=== PATIENT | female | born 1945 | race Caucasian/White ===

== ENCOUNTER → 2018-03-06 09:58 | Outpatient (CLI) | payer MEDICARE, SELFPAY ==
[2018-03-06 10:58] LABS: Basophils # 0.1 K/mm3 (0-0.2); Eosinophils # 0.2 K/mm3 (0.0-0.4); Eosinophils % 3.7 % (0.1-12.0); Hematocrit 44.8 % (37.0-47.0); Hemoglobin 14.5 g/dL (12.2-16.2); Lymphocytes # 1.7 K/mm3 (0.7-4.5); Lymphocytes % 33.8 K/mm3 (10-50); Mean Corpuscular HGB Conc 32.4 g/dL (31.8-35.4); Mean Corpuscular Hemoglobin 30.6 pg (27.0-31.2); Mean Corpuscular Volume 94.6 fl (81-99); Mean Platelet Volume 9.4 fl (7.4-10.4); Monocytes # 0.3 K/mm3 (0.1-1.0); Monocytes % 6.7 % (1.7-9.3); Neutrophils # 2.7 K/mm3 (1.8-7.8); Neutrophils % 54.7 % (37.0-80.0); Platelet Count 297 K/mm3 (142-424); Red Blood Count 4.74 M/mm3 (4.20-5.40); Red Cell Distribution Width 12.5 % (11.5-17.5); White Blood Count 4.9 K/mm3 (4.8-10.8)
[2018-03-06 11:17] LABS: Alanine Aminotransferase 26 U/L (12-78); Albumin Level 4.3 gm/dL (3.4-5.0); Alkaline Phosphatase 64 U/L (46-116); Anion Gap 9.9 mEq/L (5-15); Aspartate Amino Transferase 22 U/L (15-37); Bilirubin,Total 0.4 mg/dL (0.2-1.0); Blood Urea Nitrogen 16 mg/dL (7-18); Calcium 9.3 mg/dL (8.5-10.1); Carbon Dioxide 32 mmol/L (21.0-32.0); Chloride 103 mmol/L (98-107); Creatinine,Serum 0.69 mg/dL (0.55-1.02); Estimated Glomerular Filt Rate 84 ml/min (>60); GFR (African American) 102 ML/MIN (>60); Globulin 4.2 gm/dl (1.3-3.2); Glucose 85 mg/dL (74-106); Potassium 3.9 mmoL/L (3.5-5.1); Sodium 141 mmol/L (136-145); Thyroid Stimulating Hormone 2.88 uIU/ml (0.358-3.740); Total Protein,Serum 8.5 gm/dL (6.4-8.2)
[2018-03-06 12:31] LABS: Erythrocyte Sedimentation Rate 11 mm/hr (0-30)
[2018-03-07 09:18] LABS: Vitamin B12 732 pg/mL (232-1245)
[2018-03-07 14:45] LABS: Hemoglobin A1C 5.3 % (0.0-7.0)
[2018-03-07 15:58] LABS: Folate >20.0 ng/mL (>3.0); Rapid Plasma Reagin Ab Titer Non Reactive (NonRea<1:1)
[2018-03-08 15:17] LABS: Albumin 4.4 g/dL (2.9-4.4); Alpha-1-Globulin 0.3 g/dL (0.0-0.4); Alpha-2-Globulin 0.8 g/dL (0.4-1.0); Gamma Globulin 1.4 g/dL (0.4-1.8); Protein, Total 8.1 g/dL (6.0-8.5)
[2018-03-08 17:42] LABS: Antinuclear Antibodies, IFA Negative (.)
== END ==
PROVIDERS: Visit Provider Internal Medicine
DX: G99.0 Autonomic neuropathy in diseases classified elsewhere (principal); Z79.899 Other long term (current) drug therapy
CPT/HCPCS: 36415; 80053; 82607; 82746; 83036; 84165; 84443; 85025; 85651; 86038; 86592

== ENCOUNTER → 2018-03-07 10:51 | Outpatient (CLI) | payer MEDICARE, SELFPAY ==
[2018-03-07 10:56] LABS: Microscopic, Urine URINE MICROSCOPIC (MICROSCOPIC)
[2018-03-07 11:34] LABS: Appearance,Urine CLEAR (Clear); Bilirubin,Urine Negative (Negative); Blood, Urine Negative (Negative); Color,Urine YELLOW (Yellow); Glucose,Urine (UA) Negative (Negative); Ketones,Urine Negative (Negative); Leukocyte Esterase,Urine TRACE (Negative); Nitrate,Urine Negative (Negative); PH,Urine 6.5 (5.0-8.5); Protein,Urine Negative (Negative); Urobilinogen,Urine 0.2 EU/dl (0.2)
[2018-03-07 12:08] LABS: Bacteria,Urine Trace /lpf
== END ==
PROVIDERS: Visit Provider Internal Medicine
DX: N39.0 Urinary tract infection, site not specified (principal); G99.0 Autonomic neuropathy in diseases classified elsewhere
CPT/HCPCS: 81001; 87086

== ENCOUNTER → 2018-04-17 14:14 | Outpatient (POV) | payer MEDICARE, SELFPAY | PROVIDERS: PCP Internal Medicine | DX: Z00.00 Encounter for general adult medical examination without abnormal findings (principal) ==

== ENCOUNTER → 2019-04-02 15:05 | Outpatient (CLI) | payer MEDICARE, SELFPAY ==
--- NOTE | 2019-04-02 15:18 | XR_ITS ---
XR chest 2V HISTORY: ITS.REASON: SOA,PLEURISY ON LT ORDERING PHYSICIAN: Lul Multani PATIENT AGE: 73 years COMPARISON: 12/26/2013 FINDINGS: The cardiomediastinal silhouette and pulmonary vascularity are within normal limits. Calcified granulomas are present in both upper lobes and there are calcified nodes in the giana.. No lobar consolidation or collapse. No significant change. No acute bony abnormalities. IMPRESSION: No change with no acute finding
[2019-04-02 15:52] LABS: D-Dimer 405 ng/mL (0-400)
[2019-04-02 16:08] LABS: Erythrocyte Sedimentation Rate 9 mm/hr (0-30)
== END ==
PROVIDERS: Visit Provider Internal Medicine
DX: R09.1 Pleurisy (principal); R06.02 Shortness of breath
CPT/HCPCS: 36415; 71046; 85378; 85651

== ENCOUNTER → 2019-11-24 16:48 | Outpatient (CLI) | payer MEDICARE, SELFPAY ==
[2019-11-24 17:39] LABS: Alanine Aminotransferase 26 U/L (12-78); Alkaline Phosphatase 55 U/L (46-116); Amylase 78 U/L (25-115); Aspartate Amino Transferase 30 U/L (15-37); Basophils % 0.7 % (0.1-2.0); Bilirubin,Total 0.2 mg/dL (0.2-1.0); Blood Urea Nitrogen 12 mg/dL (7-18); Calcium 8.8 mg/dL (8.5-10.1); Carbon Dioxide 28 mmol/L (21.0-32.0); Chloride 104 mmol/L (98-107); Eosinophils # 0.4 K/mm3 (0.0-0.4); Estimated Glomerular Filt Rate 98 ml/min (>60); GFR (African American) 119 ML/MIN (>60); Glucose 92 mg/dL (74-106); Hemoglobin 12.2 g/dL (12.2-16.2); Lymphocytes # 1.5 K/mm3 (0.7-4.5); Lymphocytes % 24.6 % (10-50); Mean Corpuscular HGB Conc 30.5 g/dL (31.8-35.4); Mean Corpuscular Hemoglobin 28.4 pg (27.0-31.2); Mean Platelet Volume 8.3 fl (7.4-10.4); Monocytes # 0.4 K/mm3 (0.1-1.0); Monocytes % 6.8 % (1.7-9.3); Neutrophils # 3.8 K/mm3 (1.8-7.8); Neutrophils % 61.9 % (37.0-80.0); Platelet Count 312 K/mm3 (142-424); Red Cell Distribution Width 13.1 % (11.5-17.5); Sodium 142 mmol/L (136-145); Total Protein,Serum 6.7 gm/dL (6.4-8.2); White Blood Count 6.1 K/mm3 (4.8-10.8)
[2019-11-24 17:46] LABS: Albumin Level 3.4 gm/dL (3.4-5.0); Globulin 3.3 gm/dl (1.3-3.2)
== END ==
PROVIDERS: Visit Provider Internal Medicine
DX: R10.13 Epigastric pain (principal); R11.0 Nausea
CPT/HCPCS: 80053; 82150; 85025

== ENCOUNTER → 2021-09-19 18:10 | Outpatient (CLI) | payer MEDICARE, SELFPAY | PROVIDERS: Visit Provider Internal Medicine | DX: N39.0 Urinary tract infection, site not specified (principal) | CPT/HCPCS: 87086 ==

== ENCOUNTER → 2021-09-30 14:57 | Outpatient (CLI) | payer MEDICARE, SELFPAY ==
[2021-09-30 15:05] LABS: Microscopic, Urine URINE MICROSCOPIC (MICROSCOPIC)
[2021-09-30 17:40] LABS: Appearance,Urine CLEAR (Clear); Bilirubin,Urine Negative (Negative); Blood, Urine Negative (Negative); Color,Urine YELLOW (Yellow); Glucose,Urine (UA) Negative (Negative); Ketones,Urine Negative (Negative); Leukocyte Esterase,Urine 2+ (Negative); Nitrate,Urine Negative (Negative); Protein,Urine Negative (Negative); Specific Gravity, Urine 1.015 (1.005-1.030); Urobilinogen,Urine 0.2 EU/dl (0.2)
[2021-09-30 17:59] LABS: Bacteria,Urine 1+ /lpf; RBC,Urine Occasional #/hpf (0-3)
== END ==
PROVIDERS: Visit Provider Internal Medicine
DX: N39.0 Urinary tract infection, site not specified (principal); G60.9 Hereditary and idiopathic neuropathy, unspecified
CPT/HCPCS: 81001; 87086

== ENCOUNTER → 2021-10-25 09:08 | Outpatient (CLI) | payer MEDICARE, SELFPAY ==
[2021-10-25 10:02] LABS: Basophils # 0.1 K/mm3 (0-0.2); Basophils % 1.5 % (0.1-2.0); Eosinophils # 0.5 K/mm3 (0.0-0.4); Eosinophils % 8.1 % (0.1-12.0); Hematocrit 43.2 % (37.0-47.0); Hemoglobin 14.1 g/dL (12.2-16.2); Lymphocytes # 2.1 K/mm3 (0.7-4.5); Mean Corpuscular HGB Conc 32.7 g/dL (31.8-35.4); Mean Corpuscular Hemoglobin 30.6 pg (27.0-31.2); Mean Corpuscular Volume 93.6 fl (81-99); Monocytes # 0.4 K/mm3 (0.1-1.0); Monocytes % 7.5 % (1.7-9.3); Neutrophils # 2.5 K/mm3 (1.8-7.8); Platelet Count 319 K/mm3 (142-424); Red Blood Count 4.62 M/mm3 (4.20-5.40); Red Cell Distribution Width 12.7 % (11.5-17.5); White Blood Count 5.5 K/mm3 (4.8-10.8)
[2021-10-25 11:06] LABS: Hemoglobin A1C 5.6 % (4.0-6.0)
[2021-10-25 11:07] LABS: Alanine Aminotransferase 26 U/L (12-78); Albumin Level 4.7 g/dl (3.5-5.0); Albumin/Globulin Ratio 1.6 (1.1-1.8); Alkaline Phosphatase 56 U/L (38-126); Anion Gap 9.2 mEq/L (5-15); Aspartate Amino Transferase 44 U/L (14-36); Bilirubin,Total 0.4 mg/dl (0.2-1.3); Blood Urea Nitrogen 12 mg/dl (7-17); Calcium 10.3 mg/dl (8.4-10.2); Carbon Dioxide 32 mmol/L (22.0-30.0); Chloride 99 mmol/L (98-107); Chol/HDL Ratio 2.8 (1-3.5); Cholesterol 250 mg/dl (140-200); Estimated Glomerular Filt Rate 82 ml/min (>60); GFR (African American) 99 ML/MIN (>60); Glucose 89 mg/dl (74-100); HDL Cholesterol 88 mg/dl (40-60); Potassium 4.2 mmoL/L (3.5-5.1); Sodium 136 mmol/L (136-145); Total Protein,Serum 7.7 g/dl (6.3-8.2); Triglycerides 130 mg/dl (30-150); VLDL Cholesterol 26 mg/dL (0-40)
[2021-10-25 11:35] LABS: Thyroid Stimulating Hormone 3.05 uIU/mL (0.465-4.68)
[2021-10-25 11:56] LABS: Vitamin B12 898 pg/mL (239-931)
[2021-10-26 15:10] LABS: Albumin 4.1 g/dL (2.9-4.4); Alpha-1-Globulin 0.3 g/dL (0.0-0.4); Alpha-2-Globulin 0.8 g/dL (0.4-1.0); Gamma Globulin 1.4 g/dL (0.4-1.8); Protein, Total 7.7 g/dL (6.0-8.5)
== END ==
PROVIDERS: Visit Provider Internal Medicine
DX: I49.3 Ventricular premature depolarization (principal); J45.909 Unspecified asthma, uncomplicated; H54.50 Low vision, one eye, unspecified eye; R25.2 Cramp and spasm; E78.5 Hyperlipidemia, unspecified; G60.9 Hereditary and idiopathic neuropathy, unspecified; M15.0 Primary generalized (osteo)arthritis; Z79.899 Other long term (current) drug therapy
CPT/HCPCS: 36415; 80053; 80061; 82607; 83036; 83655; 84155; 84165; 84443; 85025

== ENCOUNTER → 2022-06-30 16:53 | Outpatient (CLI) | payer MEDICARE, SELFPAY | PROVIDERS: PCP Internal Medicine; Visit Provider Internal Medicine | DX: N39.0 Urinary tract infection, site not specified (principal) | CPT/HCPCS: 87086 ==

== ENCOUNTER → 2022-07-10 11:14 | Outpatient (CLI) | payer MEDICARE, SELFPAY ==
[2022-07-10 11:49] LABS: Basophils # 0.1 K/mm3 (0-0.2); Basophils % 1.2 % (0.1-2.0); Eosinophils # 0.3 K/mm3 (0.0-0.4); Eosinophils % 3.6 % (0.1-12.0); Hematocrit 42.4 % (37.0-47.0); Hemoglobin 13.5 g/dL (12.2-16.2); Lymphocytes # 1.7 K/mm3 (0.7-4.5); Lymphocytes % 23.3 % (10-50); Mean Corpuscular HGB Conc 31.7 g/dL (31.8-35.4); Mean Corpuscular Hemoglobin 30.5 pg (27.0-31.2); Mean Corpuscular Volume 96.2 fl (81-99); Mean Platelet Volume 8.4 fl (7.4-10.4); Monocytes # 0.4 K/mm3 (0.1-1.0); Monocytes % 5.3 % (1.7-9.3); Neutrophils # 4.7 K/mm3 (1.8-7.8); Neutrophils % 66.7 % (37.0-80.0); Platelet Count 301 K/mm3 (142-424); Red Blood Count 4.41 M/mm3 (4.20-5.40); Red Cell Distribution Width 13.1 % (11.5-17.5); White Blood Count 7.1 K/mm3 (4.8-10.8)
[2022-07-10 12:55] LABS: Alanine Aminotransferase 25 U/L (12-78); Albumin Level 4.4 g/dl (3.5-5.0); Albumin/Globulin Ratio 1.5 (1.1-1.8); Alkaline Phosphatase 66 U/L (38-126); Anion Gap 9.3 mEq/L (5-15); Aspartate Amino Transferase 36 U/L (14-36); Bilirubin,Total 0.4 mg/dl (0.2-1.3); Blood Urea Nitrogen 13 mg/dl (7-17); Calcium 9.6 mg/dl (8.4-10.2); Carbon Dioxide 31 mmol/L (22.0-30.0); Chloride 101 mmol/L (98-107); Chol/HDL Ratio 2.9 (1-3.5); Cholesterol 233 mg/dl (140-200); Estimated Glomerular Filt Rate 98 ml/min (>60); GFR (African American) 118 ML/MIN (>60); Glucose 91 mg/dl (74-100); HDL Cholesterol 79 mg/dl (40-60); Potassium 4.3 mmoL/L (3.5-5.1); Sodium 137 mmol/L (136-145); Total Protein,Serum 7.4 g/dl (6.3-8.2); Triglycerides 103 mg/dl (30-150); VLDL Cholesterol 21 mg/dL (0-40)
[2022-07-10 13:25] LABS: Thyroid Stimulating Hormone 1.53 uIU/mL (0.465-4.68)
[2022-07-11 08:25] LABS: Direct LDL Cholesterol 122 mg/dL (100-129)
== END ==
PROVIDERS: PCP Internal Medicine; Visit Provider Internal Medicine
DX: E78.5 Hyperlipidemia, unspecified (principal); R10.13 Epigastric pain; R11.0 Nausea; R53.83 Other fatigue
CPT/HCPCS: 36415; 80053; 80061; 84443; 85025

== ENCOUNTER → 2023-05-15 10:22 | Outpatient (CLI) | payer MEDICARE, SELFPAY ==
[2023-05-15 10:57] LABS: Basophils % 0.8 % (0.1-2.0); Eosinophils # 0.3 K/mm3 (0.0-0.4); Hematocrit 42.4 % (37.0-47.0); Hemoglobin 13.7 g/dL (12.2-16.2); Lymphocytes # 1.4 K/mm3 (0.7-4.5); Lymphocytes % 32.6 % (10-50); Mean Corpuscular HGB Conc 32.3 g/dL (31.8-35.4); Mean Corpuscular Hemoglobin 29.6 pg (27.0-31.2); Mean Corpuscular Volume 91.5 fl (81-99); Mean Platelet Volume 8.3 fl (7.4-10.4); Monocytes # 0.4 K/mm3 (0.1-1.0); Monocytes % 8.3 % (1.7-9.3); Neutrophils # 2.3 K/mm3 (1.8-7.8); Neutrophils % 51.3 % (37.0-80.0); Platelet Count 284 K/mm3 (142-424); Red Blood Count 4.63 M/mm3 (4.20-5.40); White Blood Count 4.4 K/mm3 (4.8-10.8)
[2023-05-15 11:25] LABS: Alanine Aminotransferase 22 U/L (12-78); Albumin Level 4.5 g/dl (3.5-5.0); Albumin/Globulin Ratio 1.6 (1.1-1.8); Alkaline Phosphatase 60 U/L (38-126); Anion Gap 13.1 mEq/L (5-15); Aspartate Amino Transferase 36 U/L (14-36); Bilirubin,Total 0.5 mg/dl (0.2-1.3); Blood Urea Nitrogen 11 mg/dl (7-17); Carbon Dioxide 30 mmol/L (22.0-30.0); Chloride 100 mmol/L (98-107); Chol/HDL Ratio 2.7 (1-3.5); Cholesterol 239 mg/dl (140-200); Estimated Glomerular Filt Rate 82 ml/min (>60); GFR (African American) 99 ML/MIN (>60); Globulin 2.8 g/dL (1.3-3.2); Glucose 76 mg/dl (74-100); HDL Cholesterol 90 mg/dl (40-60); Potassium 4.1 mmoL/L (3.5-5.1); Sodium 139 mmol/L (136-145); Total Protein,Serum 7.3 g/dl (6.3-8.2); Triglycerides 163 mg/dl (30-150); VLDL Cholesterol 33 mg/dL (0-40)
[2023-05-15 11:36] LABS: Direct LDL Cholesterol 96.87 mg/dL (100-129)
[2023-05-15 11:54] LABS: Thyroid Stimulating Hormone 2.19 uIU/mL (0.465-4.68)
[2023-05-15 12:29] LABS: Vitamin B12 640 pg/mL (239-931)
[2023-05-15 14:11] LABS: Erythrocyte Sedimentation Rate 21 mm/hr (0-30)
[2023-05-16 11:55] LABS: Albumin 3.8 g/dL (2.9-4.4); Alpha-1-Globulin 0.2 g/dL (0.0-0.4); Alpha-2-Globulin 0.7 g/dL (0.4-1.0); Gamma Globulin 1.2 g/dL (0.4-1.8); Protein, Total 6.9 g/dL (6.0-8.5)
== END ==
PROVIDERS: PCP Internal Medicine; Visit Provider Internal Medicine
DX: G60.9 Hereditary and idiopathic neuropathy, unspecified; E78.2 Mixed hyperlipidemia; D72.819 Decreased white blood cell count, unspecified; Z79.899 Other long term (current) drug therapy
CPT/HCPCS: 80053; 80061; 82607; 82746; 84155; 84165; 84443; 85025; 85651

== ENCOUNTER 2024-01-25 17:57 | Outpatient (CLI) | payer MEDICARE, SELFPAY | END 2024-01-25 23:59 | LOC: LAB.DROPOF 17:58 | PROVIDERS: PCP Internal Medicine; Visit Provider Internal Medicine | DX: N39.0 Urinary tract infection, site not specified (principal) | CPT/HCPCS: 87086 ==

== ENCOUNTER 2024-03-11 14:33 | Outpatient (CLI) | payer MEDICARE, SELFPAY ==
--- NOTE | 2024-03-11 | XR_ITS ---
FINAL REPORT CLINICAL HISTORY: LEFT 5TH DIGIT COMPARISON: None FINDINGS: 2 views of the left hand 5th digit were obtained. There is no acute fracture or dislocation. There are mild hypertrophic changes of the PIP joint. The soft tissues are unremarkable. IMPRESSION: Mild hypertrophic changes without acute process. Reviewed, Interpreted and Dictated by Benedicto Cazares MD Transcribed by Gale Elena Authenticated and [facility]
--- NOTE | 2024-03-11 | XR_ITS ---
FINAL REPORT CLINICAL HISTORY: Left hand pain COMPARISON: None FINDINGS: LEFT HAND Three views demonstrate no acute fracture or dislocation. There is moderate DIP and PIP joint space narrowing. There are mild hypertrophic changes at the basilar joint. The soft tissues are unremarkable. IMPRESSION: Moderate degenerative changes without acute process. Reviewed, Interpreted and Dictated by Benedicto Cazares MD Transcribed by Gale Elena Authenticated and [facility]
== END 2024-03-11 23:59 | disposition home or self-care (01) ==
LOC: RAD 14:34
PROVIDERS: PCP Internal Medicine; Visit Provider Orthopaedic Surgery
DX: M79.672 Pain in left foot (principal); M79.645 Pain in left finger(s)
CPT/HCPCS: 73130; 73140

== ENCOUNTER 2024-03-25 11:14 | Outpatient (CLI) | payer MEDICARE, SELFPAY ==
[2024-03-25 11:53] LABS: Basophils # 0.1 K/mm3 (0-0.2); Basophils % 1.6 % (0.1-2.0); Eosinophils # 0.3 K/mm3 (0.0-0.4); Eosinophils % 6.6 % (0.1-12.0); Hematocrit 43.3 % (37.0-47.0); Hemoglobin 13.8 g/dL (12.2-16.2); Lymphocytes # 1.5 K/mm3 (0.7-4.5); Lymphocytes % 30.4 % (10-50); Mean Corpuscular HGB Conc 31.9 g/dL (31.8-35.4); Mean Corpuscular Hemoglobin 30.5 pg (27.0-31.2); Mean Corpuscular Volume 95.6 fl (81-99); Mean Platelet Volume 8.6 fl (7.4-10.4); Monocytes # 0.4 K/mm3 (0.1-1.0); Monocytes % 8.4 % (1.7-9.3); Neutrophils # 2.5 K/mm3 (1.8-7.8); Neutrophils % 53.1 % (37.0-80.0); Platelet Count 268 K/mm3 (142-424); Red Blood Count 4.52 M/mm3 (4.20-5.40); Red Cell Distribution Width 13.4 % (11.5-17.5); White Blood Count 4.8 K/mm3 (4.8-10.8)
[2024-03-31 10:08] LABS: E001-IgE Cat Dander 4.37 kU/L (Class IV); E005-IgE Dog Dander 3.44 kU/L (Class III); E072-IgE Mouse Urine 1.67 kU/L (Class III); G002-IgE Bermuda Grass 1.63 kU/L (Class III); G006-IgE Timothy Grass 2.45 kU/L (Class III); I006-IgE Cockroach, German 0.65 kU/L (Class II); Immunoglobulin E, Total 1283 IU/mL (6-495); M001-IgE Penicillium chrysogen <0.10 kU/L (Class 0); M002-IgE Cladosporium herbarum <0.10 kU/L (Class 0); M003-IgE Aspergillus fumigatus <0.10 kU/L (Class 0); M006-IgE Alternaria alternata <0.10 kU/L (Class 0); T001-IgE Maple/Box Elder 0.12 kU/L (Class 0/I); T003-IgE Common Silver Birch <0.10 kU/L (Class 0); T006-IgE Cedar, Mountain 0.16 kU/L (Class 0/I); T007-IgE Oak, White 0.11 kU/L (Class 0/I); T008-IgE Elm, American 0.13 kU/L (Class 0/I); T010-IgE Walnut 0.14 kU/L (Class 0/I); T011-IgE Maple Leaf Sycamore 0.15 kU/L (Class 0/I); T014-IgE Cottonwood 0.14 kU/L (Class 0/I); T015-IgE Ash, White 3.01 kU/L (Class III); T022-IgE Pecan, Hickory 0.13 kU/L (Class 0/I); T070-IgE White Mulberry <0.10 kU/L (Class 0); W001-IgE Ragweed, Short 0.16 kU/L (Class 0/I); W011-IgE Thistle, Russian 0.16 kU/L (Class 0/I); W014-IgE Pigweed, Common <0.10 kU/L (Class 0); W018-IgE Sheep Sorrel <0.10 kU/L (Class 0)
== END 2024-03-25 23:59 | disposition home or self-care (01) ==
LOC: LAB 11:15
PROVIDERS: PCP Internal Medicine; Visit Provider Internal Medicine Pulmonary Disease
DX: J30.9 Allergic rhinitis, unspecified (principal)
CPT/HCPCS: 36415; 82785; 85025; 86003

== ENCOUNTER 2024-04-08 08:04 | Outpatient (CLI) | payer MEDICARE, SELFPAY ==
[2024-04-08 09:20] VITALS: PULSE 74; PULSE 78
[2024-04-08] MEDS: ALBUTEROL 0.083% 2.5 MG/3 ML NEB IH (09:20)
== END 2024-04-08 23:59 | disposition home or self-care (01) ==
LOC: RT 08:05
PROVIDERS: PCP Internal Medicine; Visit Provider Internal Medicine Pulmonary Disease
DX: R06.09 Other forms of dyspnea (principal)
CPT/HCPCS: 94060; 94618; 94640; 94726; 94729

== ENCOUNTER 2024-06-16 04:11 | Emergency (ER) | payer MEDICARE, SELFPAY ==
[2024-06-16 04:13] VITALS: BP 165/81; PULSE 68; RESP 18; TEMP 36.8; O2SAT 95; BMI 19.5
--- NOTE | 2024-06-16 04:21 | ED_ITS ---
Discharge Plan Disposition Patient Disposition: Home, Self-Care Prescriptions Prescriptions: New triamcinolone acetonide 0.5 % cream 1 applic topical BID Qty: 60 0RF hydroxyzine HCl 25 mg tablet 25 mg PO Q8H PRN (Reason: itching) Qty: 30 0RF No Action loratadine [Allergy Relief (loratadine)] 10 mg tablet 10 mg PO DAILY omeprazole 20 mg capsule,delayed release(DR/EC) 20 mg PO DAILY PRN Dulera 200-5 mcg/actuation HFA aerosol inhaler 2 puff inhalation BID 90 Days Qty: 13 2RF montelukast [Singulair] 10 mg tablet 10 mg PO DAILY Qty: 90 2RF albuterol sulfate [Ventolin HFA] 90 mcg/actuation HFA aerosol inhaler 2 inh inhalation Q6H PRN (Reason: shortness of breath or wheezing) 90 Days Qty: 18 3RF estradiol 0.5 mg tablet 0.5 mg PO ONCE Referrals Follow up/Referrals: Lul Multani MD [Primary Care Provider] - See instructions Activity Restrictions/Add. Instructions Additional Instructions/Restrictions: Please apply ointment as prescribed for itching. Please take hydroxyzine as needed. Please follow-up with your primary care provider. Please return to the emergency department if you develop any new or worsening symptoms or become concerned for your health. Clinical Impressions Clinical Impression: Rash, Bites, chigger Instructions Patient Instructions: Insect Bites (Alternative Therapy), DI for Insect Bites and Stings, DI for Rash Discharge ED Provider: Bk Munoz General Adult HPI General Chief complaint: Skin/Abscess/Foreign Body Stated complaint: covered in bumps pos bug bites Time Seen by Provider: 06/16/24 04:15 History of Present Illness HPI narrative: 78-year-old female presents for rash. She reports that she developed an itchy rash after going into the [facility]. She thinks she is covered in chiggers. Happened a couple of days ago, normally gets better relatively quickly, but this wound has been worse. She has washed all her clothes and has not been re- exposed. Denies any fever chills or other symptoms. Related Data Home Medications Medication Instructions Recorded Confirmed estradiol 0.5 mg tablet 0.5 mg PO ONCE HORMONE REPLACEMENT 04/01/18 04/08/24 loratadine 10 mg tablet (Allergy 10 mg PO DAILY 03/11/24 04/08/24 Relief (loratadine)) omeprazole 20 mg capsule,delayed 20 mg PO DAILY PRN 03/11/24 04/08/24 release Previous Rx's Medication Instructions Recorded albuterol sulfate 90 mcg/actuation 2 inh inhalation Q6H PRN shortness 04/08/24 aerosol inhaler (Ventolin HFA) of breath or wheezing 90 days #18 grams mometasone-formoterol HFA 200 2 puff inhalation BID 90 days #13 04/08/24 mcg-5 mcg/actuation aerosol grams inhaler (Dulera) montelukast 10 mg tablet 10 mg PO DAILY #90 tabs 04/08/24 (Singulair) hydroxyzine HCl 25 mg tablet 25 mg PO Q8H PRN itching #30 tabs 06/16/24 triamcinolone acetonide 0.5 % 1 applic topical BID #60 grams 06/16/24 topical cream Allergies Allergy/AdvReac Type Severity Reaction Status Date / Time amoxicillin [From Amoxil] Allergy Mild Agitated Verified 04/08/24 10:38 budesonide [From Symbicort] Allergy Mild Agitated Verified 04/08/24 10:38 diphenhydramine Allergy Mild Anxiety Verified 04/08/24 10:38 [From Benadryl] formoterol [From Symbicort] Allergy Mild Agitated Verified 04/08/24 10:38 [facility] Disclaimer: The information contained in this section may have been updated after the patient was seen, as this information can be updated by other users. Medical History (Updated 06/16/24 @ 04:36 by Bk Munoz MD) Asthma Abnormality of lung on CXR Allergic rhinitis Surgical History History of hysterectomy History of tonsillectomy Family History Father Lung cancer Other Diabetes Social History Smoking Status: Never smoker alcohol intake: never substance use type: denies use current occupational status: retired Travel in the last 8 weeks: None housing: house ROS Obtained: Yes All systems reviewed & no additional complaints except as documented Physical Exam General General appearance: alert and in no apparent distress Head Head exam: atraumatic and normocephalic Eye Eye exam: Present normal appearance, PERRL and EOMI ENT ENT exam: Present normal oropharynx and normal external ear exam Neck Neck exam: Present normal inspection and full ROM Chest Chest inspection: Present normal inspection and symmetric chest wall rise; Absent tenderness Respiratory Respiratory exam: Present normal lung sounds bilaterally; Absent respiratory distress Cardiovascular Cardiovascular exam: Present regular rate and normal rhythm Abdominal Exam Abdominal exam: Present soft; Absent distention, tenderness or guarding Extremities Exam Extremities exam: Present normal inspection; Absent edema or joint swelling Back Exam Back exam: Present normal inspection; Absent tenderness Neurological Exam Neurological exam: Present alert and oriented X3; Absent motor sensory deficit Psychiatric Psychiatric exam: Present normal affect and normal mood Skin Skin exam: Present warm, dry, normal color and rash (Tiny erythematous papules over the abdomen, back, legs consistent with arthropod bites.) Lymphatic Lymphatic Findings: no adenopathy Medical Decision Making Medical Records Medical records reviewed: Yes I reviewed the patient's medical records. Moo Inquiry Pt receiving controlled substance: No Moo was queried for this patient: No Vital Signs: 06/16/24 04:13 06/16/24 04:42 Temperature 98.3 F 98.3 F Temperature Source Oral Oral Pulse Rate 60 Pulse Rate [Left] 68 Respiratory Rate 18 18 Blood Pressure 128/60 Blood Pressure [Right Arm] 165/81 H Blood Pressure Mean [Right Arm] 109 02 Sat by Pulse Oximetry 95 Oxygen Delivery Method Room Air Room Air Lab Data Lab results reviewed: Yes I reviewed the patient's lab results. Medical Decision Narrative: 78-year-old female without significant past medical history presents with concern for chigger bites. Differential diagnosis includes but not limited to arthropod bite, allergic reaction, contact dermatitis. Physical exam is consistent with arthropod bites. No evidence of secondary cellulitis or allergic reaction. Given symptoms have not improved over the last couple of days, I prescribed her topical corticosteroid cream and Vistaril for the itching. She was discharged in stable condition with return precautions. Procedures Risk/Benefits of Procedure(s) Were Explained: Yes Critical Care Critical Care Time Critical Care Time: No
[2024-06-16 04:42] VITALS: BP 128/60; PULSE 60; RESP 18; TEMP 36.8; O2SAT 98
== END 2024-06-16 04:47 | disposition home or self-care (01) ==
PROVIDERS: Emergency Provider Emergency Medicine; PCP Internal Medicine
DX: B88.0 Other acariasis (principal); R21 Rash and other nonspecific skin eruption
CPT/HCPCS: 99283

== ENCOUNTER 2024-09-24 12:06 | Outpatient (CLI) | payer MEDICARE, SELFPAY ==
[2024-09-24 13:32] LABS: Thyroid Stimulating Hormone 2.06 uIU/mL (0.465-4.68)
[2024-09-24 14:04] LABS: Hemoglobin A1C 5.4 % (4.0-6.0)
[2024-09-24 14:08] LABS: Vitamin B12 625 pg/mL (239-931)
[2024-09-25 15:12] LABS: Albumin 3.9 g/dL (2.9-4.4); Alpha-1-Globulin 0.3 g/dL (0.0-0.4); Alpha-2-Globulin 0.7 g/dL (0.4-1.0); Gamma Globulin 1.3 g/dL (0.4-1.8); Protein, Total 7.2 g/dL (6.0-8.5)
[2024-09-25 16:28] LABS: Immunoglobulin A, Qn 284 mg/dL (64-422); Immunoglobulin G, Qn 1249 mg/dL (586-1602); Immunoglobulin M, Qn 57 mg/dL (26-217)
[2024-09-29 09:18] LABS: Vitamin B1 140.6 nmol/L (66.5-200.0)
[2024-10-02 03:14] LABS: Vitamin B6 24.7 ug/L (3.4-65.2)
[2024-10-02 18:10] LABS: Methylmalonic Acid 225 nmol/L (0-378)
[2024-10-06 15:59] LABS: PDF SCANNED IMAGE
== END 2024-09-24 23:59 | disposition home or self-care (01) ==
LOC: LAB 12:07
PROVIDERS: PCP Internal Medicine; Visit Provider Psychiatry & Neurology Neuromuscular Medicine
DX: G60.9 Hereditary and idiopathic neuropathy, unspecified (principal); Z79.899 Other long term (current) drug therapy
CPT/HCPCS: 36415; 82607; 82746; 82784; 83036; 83921; 84155; 84165; 84207; 84425; 84443; 86334

== ENCOUNTER 2024-10-17 09:19 | Outpatient (CLI) | payer MEDICARE, SELFPAY ==
--- NOTE | 2024-10-17 09:20 | XR_ITS ---
FINAL REPORT TECHNIQUE: Bone densitometry calculations of the lumbar spine and left hip were obtained. CLINICAL HISTORY: Osteopenia FINDINGS: Using L1-4, the bone mineral density of the spine is 1.29 g/cm2, corresponding to T-score of 2.3. Using the left hip, the bone mineral density of the femoral neck is 0.90 g/cm2, corresponding to a T-score of -0.3. Using the right hip, the bone mineral density of the femoral neck is 1.01 g/cm2, corresponding to a T-score of 0.6 NOTE: T-score: Standard deviation compared with peak bone mass of young adult mean. *Following the recommendations of the International Society of Bone densitometry, classification of hip BMD is based on the lower of two T-scores; total hip or femoral neck. IMPRESSION: Normal bone mineral density of the lumbar spine and hips. Reviewed, Interpreted and Dictated by Benedicto Cazares MD Transcribed by Elsa Goldsmith Authenticated and [facility]
== END 2024-10-17 23:59 | disposition home or self-care (01) ==
LOC: RAD 09:20
PROVIDERS: PCP Internal Medicine; Visit Provider Internal Medicine
DX: Z78.0 Asymptomatic menopausal state (principal)
CPT/HCPCS: 77080

== ENCOUNTER 2024-12-08 12:00 | Outpatient (CLI) | payer MEDICARE, SELFPAY | END 2024-12-08 23:59 | disposition home or self-care (01) | LOC: LAB.DROPOF 12-09 10:30 | PROVIDERS: PCP Internal Medicine; Visit Provider Internal Medicine | DX: N39.0 Urinary tract infection, site not specified (principal) | CPT/HCPCS: 87086; 87088; 87186 ==

== ENCOUNTER 2025-01-21 09:43 | Day surgery (SDC) | payer MEDICARE, SELFPAY ==
[2025-01-20 10:29] VITALS: BMI 19.2
[2025-01-21 10:17] VITALS: BP 145/73; PULSE 47; RESP 16; TEMP 36.4; O2SAT 99
[2025-01-21] MEDS: LACTATED RINGERS 1000ML 1,000 ML 50 ML IV (10:42)
--- NOTE | 2025-01-21 10:48 | EXP.ANES.CKL ---
[facility] Disclaimer: The information contained in this section may have been updated after the patient was seen, as this information can be updated by other users. Medical History GERD (gastroesophageal reflux disease) Asthma Abnormality of lung on CXR Allergic rhinitis Surgical History History of discectomy History of hysterectomy History of tonsillectomy Family History Father Lung cancer Other Diabetes Social History (Updated 01/21/25 @ 10:34 by Kirstin Alejo RN) Smoking Status: Never smoker alcohol intake: never substance use type: denies use current occupational status: retired Travel in the last 8 weeks: Inside the [facility] housing: house caffeine: No Have you lived/traveled outside US in past 30 days?: No Contact w/someone who lives/traveled outside US past 30 days?: No Exposure to someone with infectious disease in past 14 days?: No Do you have a fever (greater than 100.4 F or 38 C)?: No Have you tested positive for COVID-19: No Exposed to someone with COVID-19 in past 14 days?: No Do you have a sore throat?: No Do you have a cough?: No Do you have any weakness?: No Do you have any diarrhea?: No Are you experiencing any unusual bleeding?: No Do you have any muscle aches/pain?: No Do you have any abdominal pain?: No Are you experiencing loss of taste or smell?: No [facility] Anesthesia Checklist Patient Identification Patient Identification: Arm Band Structural Data Admitted From: Home Planned Operative Procedure/s: EGD Consent for Planned Operative Procedure(s) Verified: Yes Verified Documents: Surgical Consent and History and Physical NPO Status Verified Time NPO: 00:00 Additional verifications Anesthesia Reactions: No Airway Assessment Mallampati Score:: Class II C-Spine Mobility Assessed: Yes TMJ Mobility Assessed: Yes Dentition: Good Dentition Neurological Assessment Level of Consciousness: Awake, Alert and Appropriate Anesthesia Plan Anesthesia Risk discussed: Yes Anesthesia Plan: Verified ASA Class: II Anesthesia Type: MAC
--- NOTE | 2025-01-21 10:58 | P.HP_ITS ---
History of Present Illness *Admission Date: 01/21/25 *Reason for visit:: Epigastric pain *History of present illness: Mrs. Bejarano is a 79-year-old female who is here for diagnostic upper endoscopy secondary to epigastric pain. The examination is deemed medically necessary for diagnostic EGD. The patient has been seen, interviewed and examined prior to the procedure by both myself and the anesthesia provider. [facility] Disclaimer: The information contained in this section may have been updated after the patient was seen, as this information can be updated by other users. Medical History GERD (gastroesophageal reflux disease) Asthma Abnormality of lung on CXR Allergic rhinitis Surgical History History of discectomy History of hysterectomy History of tonsillectomy Family History Father Lung cancer Other Diabetes Social History (Updated 01/21/25 @ 10:34 by Kirstin Alejo RN) Smoking Status: Never smoker alcohol intake: never substance use type: denies use current occupational status: retired Travel in the last 8 weeks: Inside the [place] housing: house caffeine: No Have you lived/traveled outside US in past 30 days?: No Contact w/someone who lives/traveled outside US past 30 days?: No Exposure to someone with infectious disease in past 14 days?: No Do you have a fever (greater than 100.4 F or 38 C)?: No Have you tested positive for COVID-19: No Exposed to someone with COVID-19 in past 14 days?: No Do you have a sore throat?: No Do you have a cough?: No Do you have any weakness?: No Do you have any diarrhea?: No Are you experiencing any unusual bleeding?: No Do you have any muscle aches/pain?: No Do you have any abdominal pain?: No Are you experiencing loss of taste or smell?: No Other Medical History Have you received the Flu Vaccine for this season: No Have you received the Pneumonia Vaccine: Yes Meds Home Medications and Allergies Home Medications ?Medication ?Instructions ?Recorded ?Confirmed ?Type estradiol 0.5 mg tablet 0.5 mg PO ONCE HORMONE REPLACEMENT 04/01/18 01/21/25 History loratadine 10 mg tablet (Allergy 10 mg PO DAILY 03/11/24 01/21/25 History Relief (loratadine)) albuterol sulfate 90 mcg/actuation 2 inh inhalation Q6H PRN shortness 04/08/24 01/21/25 Rx aerosol inhaler (Ventolin HFA) of breath or wheezing 90 days #18 grams omeprazole 20 mg capsule,delayed 20 mg PO DAILY PRN GERD #90 caps 01/19/25 01/21/25 Rx release calcium citrate 500 mg (2,376 mg) 500 mg PO BID 01/20/25 01/21/25 History effervescent tablet multivitamin 1 tab PO DAILY 01/20/25 01/21/25 History polyethylene glycol 3350 17 gram 17 g PO DAILY 01/20/25 01/21/25 History oral powder packet (Miralax) New Prescriptions to Start Prescriptions: Allergies Allergy/AdvReac Type Severity Reaction Status Date / Time amoxicillin (From Amoxil) Allergy Mild Agitated Verified 01/21/25 10:21 budesonide (From Symbicort) Allergy Mild Agitated Verified 01/21/25 10:21 diphenhydramine (From Allergy Mild Anxiety Verified 01/21/25 10:21 Benadryl) formoterol (From Symbicort) Allergy Mild Agitated Verified 01/21/25 10:21 Exam Data for Last 24 hours Vital signs and Labs for Last 24 Hours: Temp Pulse Resp BP Pulse Ox O2 Del Method 97.5 F L 47 L 16 145/73 H 99 Room Air 01/21/25 10:17 01/21/25 10:17 01/21/25 10:17 01/21/25 10:17 01/21/25 10:17 01/21/25 10:17 I & O for Last 24 hours: Intake & Output 01/18/25 01/19/25 01/20/25 01/21/25 23:59 23:59 23:59 23:59 Weight 130 lb Constitutional Constitutional: no acute distress *Routine HEENT Exam Head: Present normocephalic Eye: Present EOMI and PERRL ENT: Present mucous membranes moist *Routine Neck Exam Neck: Present supple; Absent lymphadenopathy *Routine Respiratory Exam Respiratory: Present CTA bilaterally *Routine Cardiovascular Exam Cardiovascular: Present RRR *Routine Abdominal Exam Abdominal: Present soft and normoactive bowel sounds; Absent tenderness *Routine Rectal Exam Rectal:: deferred *Routine Genitalia Exam Genitalia:: deferred *Routine Extremities Exam Extremities: Absent cyanosis, clubbing or edema *Routine Skin Exam Skin: Present warm; Absent rash *Routine Neurological Exam Neurological: Present alert and oriented X3 Assessment and Plan *Assessment and plan (1) Epigastric pain: Status: Acute Category: Medical Code(s): R10.13 - Epigastric pain (2) Nausea: Status: Acute Category: Medical Code(s): R11.0 - Nausea (3) Belching: Status: Acute Category: Medical Code(s): R14.2 - Eructation (4) Constipation: Status: Acute Category: Medical Code(s): K59.00 - Constipation, unspecified Plan A/P: 1. Epigastric pain with nausea and belching is the preprocedural diagnosis. She does have some chronic constipation. The patient will be anesthetized/sedated using MAC sedation. The patient has been seen and examined. Cardiac and lung assessment prior to the examination is stable. Proceed with planned diagnostic EGD
[2025-01-21 11:03] VITALS: O2SAT 100
--- NOTE | 2025-01-21 11:06 | HMH.PROCNOTE ---
[facility] Procedure Note Date: 01/21/25 Time: 11:13 Procedure Note:: Upper Endoscopy Procedure Report: Esophagogastroduodenoscopy with cold biopsies and TTS balloon dilation Endoscopost: Weston Logan II, MD Referring Physician: Lul Multani MD Date of Procedure: January 21, 2025 Equipment: Olympus GIF 190 standard upper endoscope Sedation: MAC sedation Indications: Mrs. Bejarano is a 79-year-old female with epigastric abdominal pain and dyspepsia for about a year. She reports no heartburn or reflux. She does get some belching and globus sensation. She does have some improvement of her symptoms with belching. She is on omeprazole which helps a little. She tries to avoid acidic foods. She does have some bloating and constipation. She does take prune juice and cranberry juice. She had a colonoscopy (at [facility]) earlier in 2023. Her last upper endoscopy was in 2010 (Moreno Vanessa MD). Procedure: Prior to the procedure, a history and physical exam was performed, and patient's medications and allergies were reviewed. The risks, benefits and alternatives of the sedation and procedure were discussed with the patient. All questions were answered and informed consent was obtained. The patient was brought to the procedure room. Patient identification and proposed procedure were verified by the physician and the nurse. The patient was placed in a left lateral decubitus position and the scope was passed under direct vision. Throughout the procedure, the patient's blood pressure, pulse, and oxygen saturations were monitored continuously. The upper GI endoscopy was accomplished without difficulty. The patient tolerated the procedure well. Findings: The scope was passed directly into the upper esophagus and advanced to the third portion of the duodenum. The post bulbar duodenum and duodenal bulb were normal with normal mucosa and conniventes. The scope was withdrawn through a normal duodenal bulb and pylorus into the stomach. There was mild linear reactive gastropathy of the antrum. Biopsies were taken from the antrum. The body and fundus of the stomach were grossly normal. Upon retroflexion there was no hiatal hernia. The scope was then withdrawn into the esophagus. There is no evidence of reflux esophagitis or Peterson's. There were no rings, corrugation, furrowing or inlet patch. There were tertiary contractions and evidence of mild esophageal dysmotility. The entire esophagus was dilated to 60 [place]/20 mm with a TTS hydrostatic balloon. There was mild resistance at the cricopharyngeus. The remainder of the esophageal mucosa was normal. Impression: 1. 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 Most of her symptoms of dyspepsia are related to and driven by lower intestinal gas pressure gradients/high gas pressure buildup resulting in backflow of bile and peptic fluid from the duodenum into the stomach (duodenal reflux). This gas production (carbon dioxide, hydrogen, methane, etc.) from the lower intestinal tract is the byproduct of colonic bacterial fermentation. This colonic fermentation occurs when there is more carbohydrate (dietary starches, sugars and high residue plant fiber) substrate that does not get digested (in the middle or small intestine) or occurs when there is colonic fecal buildup and colonic bacterial overgrowth. This indeed leads to bloating and the gas pressure buildup with gas pressure gradients that do drive backflow and dyspepsia. Based upon her new symptoms and age, I would still consider imaging study of the abdomen.
--- NOTE | 2025-01-21 11:16 | CT_ITS ---
FINAL REPORT TECHNIQUE: Axial CT of the abdomen and pelvis, without and with IV an oral contrast. This study was performed with techniques to keep radiation doses as low as reasonably achievable, (ALARA). Individualized dose reduction techniques using automated exposure control or adjustment of mA and/or kV according to the patient''s size were employed. CLINICAL HISTORY: Epigastric abdominal pain-new FINDINGS: Abdomen: Lung bases are clear. Liver has an unremarkable CT appearance. The spleen, pancreas, gallbladder and adrenal glands are unremarkable. Precontrast imaging shows no renal stone disease. Postcontrast imaging of the kidneys shows no mass or obstruction. No bowel obstruction or fluid collection is seen. Pelvis: The appendix is not visualized. No secondary findings of appendicitis. Pelvic bowel loops are unremarkable. Patient is status post hysterectomy. Urinary bladder is mildly distended. No fluid collection or adenopathy is seen. IMPRESSION: Unremarkable exam Reviewed, Interpreted and Dictated by Amber Graham MD Transcribed by Elsa Goldsmith Authenticated and [facility]
[2025-01-21 11:17] VITALS: BP 125/67; PULSE 63; RESP 18; TEMP 36.5; O2SAT 98
[2025-01-21 11:27] VITALS: BP 106/67; PULSE 53; RESP 18; O2SAT 98
[2025-01-21 11:37] VITALS: BP 127/63; PULSE 50; RESP 18; O2SAT 98
[2025-01-21 11:47] VITALS: BP 131/71; PULSE 50; RESP 18; O2SAT 98
[2025-01-21 12:14] LABS: Blood Urea Nitrogen 11 mg/dl (7-17); Calcium 9.1 mg/dl (8.4-10.2); Carbon Dioxide 31 mmol/L (22.0-30.0); Chloride 105 mmol/L (98-107); Creatinine Clearance Estimated 44 mL/min (50-200); Estimated Glomerular Filt Rate 97 ml/min (>60); GFR (African American) 117 ML/MIN (>60); Glucose 82 mg/dl (74-100); Sodium 137 mmol/L (136-145)
[2025-01-21 13:08] LABS: Anion Gap 5.2 mEq/L (5-15); Potassium 4.2 mmoL/L (3.5-5.1)
--- NOTE | 2025-01-21 13:33 | SUR.PHASEII ---
1130: Pt's original IV removed and VSS. Pt is at baseline and is ok for d/c. Will hold pt in bay until ready for CT scan. 1325: Pt picked up per radiology staff for scan. Independent with ambulation. Will allow to d/c from radiology.
[2025-01-21] MEDS: SODIUM CHLORIDE 0.9% 10ML SYR (RAD ONLY) 10 ML IV (13:39)
[2025-01-21] MEDS: DIATRIZOATE MEG 66% & DIATRIZOATE NA 10% 30ML UDC 30 ML PO (13:40)
[2025-01-21] MEDS: IOPAMIDOL-370 (76%);100ML BOTTLE 75 ML IV (13:40)
== END 2025-01-21 13:25 | disposition home or self-care (01) ==
PROVIDERS: PCP Internal Medicine; Visit Provider Internal Medicine Gastroenterology
PROC: 0DJ08ZZ Inspection of Upper Intestinal Tract, Via Natural or Artificial Opening Endoscopic (ICD-10-PCS; CPT 43239; principal; 2025-01-21 11:30)
DX: K21.9 Gastro-esophageal reflux disease without esophagitis (principal); K22.4 Dyskinesia of esophagus; J39.2 Other diseases of pharynx; K31.9 Disease of stomach and duodenum, unspecified; R10.13 Epigastric pain; R11.0 Nausea; R14.2 Eructation; K59.00 Constipation, unspecified
CPT/HCPCS: 43239; 43249; 74178; 80048; 88305; C1726; J7120; Q9963; Q9967

== ENCOUNTER 2025-04-29 11:56 | Outpatient (CLI) | payer MEDICARE, SELFPAY ==
--- NOTE | 2025-04-29 11:59 | XR_ITS ---
FINAL REPORT CLINICAL HISTORY: Left lumbar back pain FINDINGS: AP, lateral, and oblique views of the lumbar spine were obtained. There is no prior exam for comparison. There is no acute fracture or acute malalignment. Vertebral body height is preserved. Multilevel degenerative disc disease is most pronounced at L2-3 and L5-S1. No acute paraspinal abnormality is identified. IMPRESSION: Degenerative changes without acute osseous abnormalities lumbar spine. Reviewed, Interpreted and Dictated by Giselle Sotelo MD Transcribed by Gale Elena Authenticated and [facility]
== END 2025-04-29 23:59 | disposition home or self-care (01) ==
LOC: RAD 11:57
PROVIDERS: PCP Internal Medicine; Visit Provider Internal Medicine
DX: M47.816 Spondylosis without myelopathy or radiculopathy, lumbar region (principal)
CPT/HCPCS: 72110